=== PATIENT | male | born 1960 | race Caucasian/White ===

== ENCOUNTER 2017-04-04 10:32 | Emergency (ER) | payer OTHER | END 2017-04-04 11:45 | disposition home or self-care (01) | LOC: FER 10:32 | DX: S93.601A Unspecified sprain of right foot, initial encounter (principal); S93.401A Sprain of unspecified ligament of right ankle, initial encounter; F17.220 Nicotine dependence, chewing tobacco, uncomplicated; W55.19XA Other contact with horse, initial encounter; Y92.009 Unspecified place in unspecified non-institutional (private) residence as the place of occurrence of the external cause | CPT/HCPCS: 73610; 73630; 99283 ==